=== PATIENT | male | born 1965 | race African-American/Black ===

== ENCOUNTER → 2017-06-26 | Day surgery (SDC) | payer OTHER ==
[~2017-06-26] MED LIST: B-12 5,000 MCG1 EACH; DIOVAN160 MG PO; FENTANYL CITRATE/PF 100MCG/2 ML INJ ONE; FOLIC ACID1 MG PO; HYDROXYCHLOROQ200 MG; IBUPROFEN400 MG PO; METHOTREXATE2.5 MG PO; MIDAZOLAM HCL 2 MG/2 ML VIAL ONE; PROPOFOL IV EMULSION 10 MG/ML 50 ML VIAL ONE; VITAMIN C1000 MG; VITAMIN D1000 UNI1 PO
--- OUTSIDE RECORDS SUMMARY | 2017-06-26 05:31 | XMS REPORT ---
[facility] Address Unknown Phone Unavailable Care Team Providers Care Technical Applications Scientist Name Role Phone UNKNOWN, REFFERING PP Unavailable Problems This patient has no known problems. Allergies, Adverse Reactions, Alerts This patient has no known allergies or adverse reactions. Medications This patient has no known medications. Encounters Start Date/Time End Date/Time Encounter Type Admission Type Attending Clinicians Care Facility Care Department Encounter ID 2017-05-24 23:18:00 2017-05-24 23:18:00 Emergency E [facility] [id number] Results Test Description Test Time Test Comments Text Results Atomic Results Result Comments XR HAND 3+V.-LEFT 2017-05-25 00:21:19 AFTER HOURS SERVICE ON: 05/25/2017 12 :21 AMLeft Hand, 3 Views Location Code [id number]: MVAFindings:There is normal anatomic alignment. No fracture, dislocation oravulsion fragments are seen. Articular surfaces are within normallimits. There is dorsal soft tissue swelling.Impression:Dorsal soft tissue swelling. No acute osseous findings. XR FEMUR 2V.-LEFT 2017-05-25 00:19:42 AFTER HOURS SERVICE ON: 05/25/2017 12 :19 AMLeft Femur, 4 Views Location Code [id number]: MVAFindings:There is no fracture or dislocation. There is no periosteal elevation. No lytic or blastic lesions. Impression:Unremarkable femur.
== END | disposition home or self-care (01) ==
LOC: OR 05:29
PROVIDERS: ATTEND Internal Medicine Gastroenterology
DX: Z12.11 Encounter for screening for malignant neoplasm of colon (principal); D12.4 Benign neoplasm of descending colon; D12.8 Benign neoplasm of rectum; K29.70 Gastritis, unspecified, without bleeding; K21.0 Gastro-esophageal reflux disease with esophagitis; K44.9 Diaphragmatic hernia without obstruction or gangrene; I10 Essential (primary) hypertension; M06.9 Rheumatoid arthritis, unspecified; H91.90 Unspecified hearing loss, unspecified ear; G47.33 Obstructive sleep apnea (adult) (pediatric); E66.01 Morbid (severe) obesity due to excess calories; Z01.810 Encounter for preprocedural cardiovascular examination; Z68.42 Body mass index [BMI] 45.0-49.9, adult
CPT/HCPCS: 43239; 45381; 45385; 93005; J2250

== ENCOUNTER → 2019-04-09 | Day surgery (SDC) | payer OTHER ==
[2019-04-08 10:56] LABS: BASOPHILS % 0.3 % (0.0-1.0); EOSINOPHILS % 0.3 % (0.0-6.0); HEMATOCRIT 40.4 % (38.2-49.6); HEMOGLOBIN 13.6 g/dL (14.0-18.0); LYMPHOCYTES # (AUTO) 2.3 (1.0-3.2); LYMPHOCYTES % 21.7 % (18.0-39.1); MEAN CORPUSCULAR HEMOGLOBIN 30.4 pg (28-32); MEAN CORPUSCULAR HGB CONC 33.7 g/dL (31-35); MEAN CORPUSCULAR VOLUME 90.2 fL (81-99); MONOCYTES # (AUTO) 0.9 (0.2-0.8); MONOCYTES % 8.6 % (4.4-11.3); NEUTROPHILS # (AUTO) 7.2 (2.1-6.9); NEUTROPHILS % 68.7 % (38.7-80.0); PLATELET COUNT 301 x10e3/uL (140-360); RED BLOOD COUNT 4.48 x10e6/uL (4.3-5.7)
[~2019-04-09] MED LIST changes: +ASPIR 8181 MG PO; +BC POWDER PACK1 EAC1 PO; +BICALUTAMIDE50 MG PO; +HYDROCHLOROTHIA25 MG PO; -HYDROXYCHLOROQ200 MG; +HYDROXYCHLOROQ200 MG PO; +IRON18 MG PO; +LOSARTAN POTAS100 MG PO; +MEGA MEN PO; +OMEPRAZOLE40 MG PO; +[UNRECOGNIZED DRUG - OTHER] PO
--- OUTSIDE RECORDS SUMMARY | 2019-04-09 05:36 | XMS REPORT ---
[facility] Address Unknown Phone Unavailable Care Team Providers Care Manager Mechanical Maintenance Name Role Phone UNKNOWN, REFFERING PP Unavailable Problems This patient has no known problems. Allergies, Adverse Reactions, Alerts This patient has no known allergies or adverse reactions. Medications This patient has no known medications. Encounters Start Date/Time End Date/Time Encounter Type Admission Type Attending Clinicians Care Facility Care Department Encounter ID 2018-09-15 05:43:00 2018-09-15 05:43:00 Outpatient [facility] [id number] 2017-05-24 23:18:00 2017-05-24 23:18:00 Emergency E [facility] [id number] 1989-01-23 00:00:00 1989-01-23 00:00:00 Outpatient [facility] [id number] Results Test Description Test Time Test Comments Text Results Atomic Results Result Comments XR HAND 3+V.-LEFT 2017-05-25 00:21:19 AFTER HOURS SERVICE ON: 05/25/2017 12:21 AMLeft Hand, 3 Views Location Code [id number]: MVAFindings:There is normal anatomic alignment. No fracture, dislocation oravulsion fragments are seen. Articular surfaces are within normallimits. There is dorsal soft tissue swelling.Impression:Dorsal soft tissue swelling. No acute osseous findings. XR FEMUR 2V.-LEFT 2017-05-25 00:19:42 AFTER HOURS SERVICE ON: 05/25/2017 12:19 AMLeft Femur, 4 Views Location Code [id number]: MVAFindings:There is no fracture or dislocation. There is no periosteal elevation. No lytic or blastic lesions. Impression:Unremarkable femur.
--- OUTSIDE RECORDS SUMMARY | 2019-04-09 05:36 | XMS REPORT | Summary of Care ---
Author Author Tammy Bowden M.A. Unknown Address [facility] Phone Unavailable Care Team Providers Care Electrical Technology Instructor Name Role Phone PRICILA BURGOS M.D. Unavailable Unavailable Functional Status Name Dates Details Functional status health issues are not documented Status: Name Dates Details Cognitive status health issues are not documented Status: Problems Name Dates Details Incomplete tear of right rotator cuff (840.4, M75.111) Status: Active Medications Name Dates Details Medications not documented Allergies and Adverse Reactions Name Dates Details Allergy history not documented Status: Procedures Procedure Dates Details Procedures not documented Immunization Name Dates Details Immunizations not documented Social History Name Dates Details Unknown if ever smoked Vital Signs Date Test Result Details No Known Vitals to report Results Date Description Value Details [id number] [U] XRAY SHOULDER MIN 2 VWS RIGHT [id number] XR SHOULDER MIN 2 VWS RIGHT Images acquired, not reported on this accession number. Plan of Care Name Dates Details Planned Observations Planned Goals not documented Planned Encounters Appointment; PRICILA BURGOS M.D. On: 16-Feb-2018 10:15 Interventions Provided Labs/Procedures/Imaging* [U] XRAY SHOULDER MIN 2 VWS RIGHT [id number]; Done: 05 Jan 2018 Instructions Name Dates Details Instructions not documented Encounters Appointment; PRICILA BURGOS M.D. Encounter Diagnosis: Problem not documented On: 05-Jan-2018 13:00
[2019-04-09 07:30] VITALS: BP 130/87
== END | disposition home or self-care (01) ==
LOC: OR 05:08
PROVIDERS: ATTEND Internal Medicine Gastroenterology
DX: K30 Functional dyspepsia (principal); Z86.010 Personal history of colon polyps; K64.0 First degree hemorrhoids; K21.9 Gastro-esophageal reflux disease without esophagitis; Z71.3 Dietary counseling and surveillance; G47.33 Obstructive sleep apnea (adult) (pediatric); I10 Essential (primary) hypertension; E66.01 Morbid (severe) obesity due to excess calories; I44.4 Left anterior fascicular block; M06.9 Rheumatoid arthritis, unspecified; Z68.42 Body mass index [BMI] 45.0-49.9, adult
CPT/HCPCS: 36415; 45378; 85025; 93005; J2250; J2704; J3010

== ENCOUNTER → 2020-08-17 | Day surgery (SDC) | payer OTHER ==
[~2020-08-17] MED LIST changes: -FENTANYL CITRATE/PF 100MCG/2 ML INJ ONE; +FISH OIL 1,0001 EAC2 PO; +FLOMAX0.4 MG PO; +LIDOCAINE HCL 2% LOCAL INJ 5 ML SDV VIAL INJ ONE; +MOBIC7.5 MG PO; +PROPOFOL IV EMULSION 10 MG/ML 20 ML VIAL ONE; -PROPOFOL IV EMULSION 10 MG/ML 50 ML VIAL ONE; +TADALAFIL20 M1 PO; +VIAGRA50 MG PO
[2020-08-17 08:35] VITALS: BP 111/83
== END | disposition home or self-care (01) ==
LOC: OR 05:46
PROVIDERS: ATTEND Internal Medicine Gastroenterology
DX: K55.20 Angiodysplasia of colon without hemorrhage (principal); K64.8 Other hemorrhoids; K22.2 Esophageal obstruction; K44.9 Diaphragmatic hernia without obstruction or gangrene; K29.50 Unspecified chronic gastritis without bleeding; D13.0 Benign neoplasm of esophagus; E66.01 Morbid (severe) obesity due to excess calories; Z68.42 Body mass index [BMI] 45.0-49.9, adult; I10 Essential (primary) hypertension; E78.00 Pure hypercholesterolemia, unspecified; M06.9 Rheumatoid arthritis, unspecified; Z01.810 Encounter for preprocedural cardiovascular examination
CPT/HCPCS: 43239; 45378; 93005; J2001; J2250; J2704